=== PATIENT | male | born 1970 | race Caucasian/White ===

== ENCOUNTER 2023-01-10 11:24 | Outpatient (REF) | payer MEDICAID, SELFPAY ==
[2023-01-10 15:05] LABS: Alanine Aminotransferase 22 U/L (0-40); Albumin Level 4.3 g/dL (3.5-5.0); Alkaline Phosphatase 80 U/L (39-117); Anion Gap 14 (12-20); Aspartate Amino Transferase 21 U/L (5-37); Bilirubin Direct 0.2 mg/dL (0.0-0.5); Bilirubin Total 0.7 mg/dL (0.0-1.0); Blood Urea Nitrogen 14 mg/dL (9-16); Calcium 9.2 mg/dL (8.4-10.2); Carbon Dioxide 26 mmol/L (22-29); Chloride 103 mmol/L (96-108); Cholesterol 178 mg/dL (<200); Estimated Glomerular Filt Rate > 60; Glucose Random 162 mg/dL (60-115); HDL Cholesterol 43 mg/dL (>40); LDL Cholesterol Calculated 119 mg/dL (<100); Potassium 2.9 mmol/L (3.3-5.1); Sodium 140 mmol/L (135-145); Total Protein 7.8 g/dL (6.5-8.0); Triglycerides 80 mg/dL (<150)
== END 2023-01-10 11:25 | disposition home or self-care (01) ==
LOC: HO.CHCLDS 11:24
PROVIDERS: Visit Provider Student in an Organized Health Care Education/Training Program
DX: I10 Essential (primary) hypertension (principal)
CPT/HCPCS: 36415; 80048; 80061; 80076

== ENCOUNTER 2024-08-20 14:05 | Outpatient (REF) | payer MEDICAID, SELFPAY ==
--- OUTSIDE RECORDS SUMMARY | 2024-08-20 14:21 | XMS_ITS | Encounter Summary ---
Author Organization [employer] Address [address] [facility] [address] [place] [address] Care Team Providers Care Mailing Machine Assistant Name Role Phone Jenifer Diane MD Primary Care Provider [phone] Encounter Details Date Type Department Care Team (Late st Contact Info) Description 08/16/2024 Telephone [facility] Department [address] [facility] [address] [place] [address] Kendra Daniels Social History Tobacco Use Types Packs/Day Years Used Date Smoking Tobacco: Never Passive Smoke Exposure: Never Smokeless Tobacco: Never Depression Answer Date Recorded Patient Health Questionnaire-9 Score 17 08/02/2024 Patient Health Questionnaire-9 Score 17 08/02/2024 Last PHQ-9: Questionnaire Data Not on file 0 08/02/2024 Housing Stability Answer Date Recorded What is your housing situation today? I have housing today, but I am worried about losing housing in the future 08/07/[address] you li ve. Do you have problems with any of the following? None of the above 08/07/2024 Food Insecurity Answer Date Recorded Within the past 12 months, y ou worried that your food would run out before you got money to buy more: Often true 08/07/2024 Within the past 12 months,th e food you bought just didn't last and you didn't have enough money to get more: Often true Transportation Answer Date Recorded In the past 12 months, has l ack of transportation kept you from medical appts, meetings, work or from getting things needed for daily living? Yes, it has kept me from medical appointments or getting medications. 08/07/2024 Utilities Answer Date Recorded In the past 12 months, has t he electric, gas, oil or water company threatened to shut off services in your home? No 08/07/2024 Depression Answer Date Recorded Patient Health Questionnaire-2 Score 6 08/02/2024 Internet Access Answer Date Recorded Internet Access Q1 No 08/07/2024 Internet Access Q2 I cannot afford it 08/07/2024 Sex and Gender Information Value Date Recorded Sex Assigned at Male 02/08/2022 10:14 AM EDT Legal Sex Male 10:14 AM EDT Gender Identity Male 02/08/2022 10:14 AM EDT Sexual Orientation Choose not to disclose 2021 10:14 AM EDT documented as of this encounter Plan of Treatment Upcoming Encounters Date Type Department Care Team (Late st Contact Info) Description 10/10/2024 10:15 AM EDT Office Visit [facility] [address] [place] [address] Jenifer Diane MD [address] [place] [address] documented as of this encounter Visit Diagnoses Not on filedocumented in this encounter Additional Health Concerns Assessment Noted Time PHQ-9 Depression Total Score: 17 025 1:51 PM EDT documented as of this encounter Care Teams Mailing Machine Assistant Relationship Specialty Start Date End Date Jenifer Diane MD [address] [place] [id number] PCP - General Family Medicine 03/23/12 documented as of this encounter
--- OUTSIDE RECORDS SUMMARY | 2024-08-20 14:21 | XMS_ITS ---
Author Organization [employer] Address [address] [place] [address] [address] [place] [id number] Care Team Providers Care Five Piece Expansion Maker Hand Name Role Phone Jenifer Diane MD Primary Care Provider [phone] [facility] Status:Enrolled (Active) Start date:07/31/2024 Enrollment date:08/07/2024 Enrollment reason:ADT Feed Case Team Name Relationship Phone Karon Ku Machine Helper(Responsible Staff) [phone] Continued Care and Services Coordination
--- OUTSIDE RECORDS SUMMARY | 2024-08-20 14:21 | XMS_ITS ---
Author Organization [employer] Address [address] [place] [address] 7 [place] [address] Care Team Providers Care Warehouse Technician Name Role Phone Jenifer Diane MD Primary Care Provider [phone] TO Status:Enrolled (Active) Start date:07/23/2024 Enrollment date:07/26/2024 Enrollment reason:ADT Feed Case Team Name Relationship Phone Prema Ko HC Director Of Litigation(Responsible Staff ) [phone] Continued Care and Services Coordination
--- OUTSIDE RECORDS SUMMARY | 2024-08-20 14:21 | XMS_ITS | Encounter Summary ---
Author Organization [facility] Address [address] [place] [address] Care Team Providers Care Net Mobile Developer Name Role Phone Mark Solis MD Primary Care Provider Reason for Visit * Reason Comments Headache Nausea vomiting toda y Encounter Details Date Type Department Care Team (Late st Contact Info) Description 08/16/2024 4:57 PM EDT - 08/16/2024 11:16 PM EDT Emergency [facility] Emergency [address] [place] [phone] Petr Woodruff MD [address] [place] [address] Anca Moreno MD [address] [place] [address] Intractable headache, unspecified chronicity pattern, unspecified headache type (Primary Dx) Discharge Disposition: Home or Self Care Social History Tobacco Use Types Packs/Day Years Used Date Smoking Tobacco: Never Assessed Sex and Gender Information Value Date Recorded Sex Assigned at Not on file Legal Sex Male 2:14 PM EST Gender Identity Not on file Sexual Orientation Not on file documented as of this encounter Last Filed Vital Signs Vital Sign Reading Time Taken Comments Blood Pressure 122/53 08/16/2024 9:04 PM EDT Pulse 54 08/16/2024 9:04 PM EDT Temperature 36.6 ??C (97.8 ??F) 08/16/2024 9:04 PM ED T Respiratory Rate 18 08/16/2024 9:04 PM EDT Oxygen Saturation 98% 08/16/2024 9:04 PM EDT Inhaled Oxygen Concentration - - Weight 103 kg (226 lb 6.4 oz) 08/16/2024 5:26 PM EDT Height 182.9 cm (6') 08/16/2024 5:26 PM EDT Body Mass Index 30.71 08/16/2024 5:26 PM EDT documented in this encounter Functional Status * Are you deaf or do you have serious difficulty hearing? Answer Date of Assessment Author No 08/16/2024 11:06 PM EDT Clifford Bonilla RN * Are you blind or do you have serious difficulty seeing, even when wearing glasses? Answer Date of Assessment Author No 08/16/2024 11:06 PM EDT Clifford Bonilla RN * Do you have serious difficulty walking or climbing stairs? Answer Date of Assessment Author No 08/16/2024 11:06 PM EDT Clifford Bonilla RN * Do you have serious difficulty dressing or bathing? Answer Date of Assessment Author No 08/16/2024 11:06 PM EDT Clifford Bonilla RN * Because of a physical, mental, or emotional condition, do you have serious difficulty doing errandsalone such as visiting the doctor? Answer Date of Assessment Author No 08/16/2024 11:06 PM EDT Clifford Bonilla RN documented as of this encounter Mental Status * Because of a physical, mental, or emotional condition, do you have serious difficulty concentrating, remembering, or making decisions? (5 years old or older) Answer Entry Date Author No 08/16/2024 11:06 PM EDT Clifford Bonilla RN documented in this encounter Discharge Instructions * Discharge Instructions* Petr Woodruff MD - 08/16/2024 11:12 PM EDT You were seen in the hospital for your headache and other complaints. Your symptoms all resolved inthe emergency department with medications. We did do labs and a CAT scan, and they were unremarkable. Follow-up with your primary care doctor. Please return if your symptoms worsen. * Attachments The following attachments cannot be sent through Care Everywhere. * Headache (Slovak) documented in this encounter Discharge Disposition Disposition Code Departure Means Destination Comment s Home or Self Care documented in this encounter Progress Notes * Cherise Bonilla RN - 08/16/2024 10:50 PM EDT Pt requesting to leave and asking if he can remove his IV - IV removed by this RN * Bev Duarte RN - 08/16/2024 5:02 PM EDT Pt's symptoms were discussed with Dr. Woodruff, who suggested activating a stroke alert. Charge nurse made aware, stroke alert activated and pt moved to red pod room 1. * Bev Duarte RN - 08/16/2024 4:38 PM EDT Pt here with c/o headache , nausea and vomiting since yesterday. I had subarachnoid bleeding few years ago, [place] [facility] [place] Denies blurry vision. Denies neck stiffness. 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, It helps little bit documented in this encounter Plan of Treatment Not on file documented as of this encounter Procedures Procedure Name Priority Date/Time Associated Diagnosis Comments ECG ANNOTATED 08/17/2024 XR CHEST 1 VIEW STAT 08/16/2024 7:41 PM EDT TYPE AND SCREEN STAT 08/16/2024 5:[address] ANGIO HEAD/NECK STROKE WO AND/OR W CONTRAST STAT 08/16/2024 5:26 PM EDT ECG 12-LEAD STAT 08/16/2024 5:[address] HEAD STROKE WO CONTRAST STAT 08/16/2024 5:14 PM EDT TROPONIN I HIGH SENSITIVITY STAT 08/16/2024 5:00 PM EDT CBC WITH AUTO DIFFERENTIAL STAT 08/16/2024 5:00 PM EDT ACTIVATED PARTIAL THROMBOPLASTIN TIME STAT 08/16/2024 5:00 PM EDT PROTHROMBIN TIME WITH INR STAT 08/16/2024 5:00 PM EDT CBC AND DIFFERENTIAL STAT 08/16/2024 5:00 PM EDT COMPREHENSIVE METABOLIC PANEL STAT 08/16/2024 5:00 PM EDT documented in this encounter Results * ECG-Annotated (08/17/2024) us Provider Onbase ECG ORDERABLES Final Result * XR Chest 1 View (08/16/2024 7:41 PM EDT) Anatomical Region Laterality Modality Body Radiographic Venus ging 08/17/2024 12:4 7 PM EDT Impressions 08/17/2024 12:53 PM EDT FINDINGS/IMPRESSION: Lungs are clear. ??No pleural effusion or pneumothorax. ??Cardiac silhouette is normal in size. ??Mild degenerative changes seen throughout the bones. -------- FINAL REPORT -------- Dictated By: GAGE PETER Dictated Date: 08/17/2024 12:47 ET Assigned Physician: GAGE PETER Reviewed and Electronically Signed By: GAGE PETER Signed Date: 08/17/2024 12:53 ET Workstation ID: [id number] Transcribed By: Self Edit Transcribed Date: 08/17/2024 12:47 ET Narrative 08/17/2024 12:53 PM EDT XR CHEST 1 VIEW INDICATION: ??Pain TECHNIQUE: XR CHEST 1 VIEW COMPARISON: No priors available. Procedure Note Gage Peter MD - 08/17/2024 XR CHEST 1 VIEW INDICATION: Pain TECHNIQUE: XR CHEST 1 VIEW COMPARISON: No priors available. IMPRESSION: FINDINGS/IMPRESSION: Lungs are clear. No pleural effusion orpneumothorax. Cardiac silhouette is normal in size. Mild degenerativechanges seen throughout the bones. -------- FINAL REPORT -------- Dictated By: GAGE PETER Dictated Date: 08/17/2024 12:47 ET Assigned Physician: GAGE PETER Reviewed and Electronically Signed By: GAGE PETER Signed Date: 08/17/2024 12:53 ET Workstation ID: [id number] Transcribed By: Self Edit Transcribed Date: 08/17/2024 12:47 ET Petr Woodruff MD IMG XR PROCEDURES Final Result * Type and screen (08/16/2024 5:30 PM EDT) ABO Group A 08/16/2024 6:30 PM EDT [facility] Rh Type Positive 08/16/2024 6:30 PM EDT [facility] Antibody Screen Negative 08/16/2024 6:30 PM EDT [facility] Blood Venous blood specimen / Unknown Venipuncture / Unknown 08/16/2024 5:30 PM EDT 08/16/2024 5:45 PM EDT [facility] BLOOD BANK TEST ORDERABLES Final Result [facility] [address] [place] [address], * CT Angio Head/Neck Stroke wo and/or w Contrast (08/16/2024 5:26 PM EDT) Anatomical Region Laterality Modality Head and Neck Computed Tomogra phy 08/16/2024 6:26 PM EDT Addenda Addendum by Estuardo Bro MD on 08/16/2024 7:02 PM EDT ADDENDUM: 7 x 8 mm nodule of the right parotid gland. This document has been electronically signed by: Estuardo Bro MD on 08/16/2024 19:02:23 Impressions 08/16/2024 6:26 PM EDT Patent head and neck CTA. No evidence of dural venous sinus thrombosis. This document has been electronically signed by: Estuardo Bro MD on 08/16/2024 18:26:54 Narrative 08/16/2024 6:26 PM EDT INDICATION: Neuro deficit, acute, stroke suspected CT angiography head and neck, CT head venogram with contrast. 3D Postprocessing. Comparison: None Findings: Aortic arch and cervical great vessels are patent with no aneurysm, dissection, hemodynamically significant stenoses, or occlusion. Left dominant vertebral artery. Intracranial arteries are patent. No aneurysm, dissection, hemodynamically significant stenoses, or occlusion. No abnormal intracranial enhancement. The visualized thyroid gland is unremarkable. No cervical mass or fluid collection. Lung apices clear. No acute fracture. Degenerative changes of the cervical spine. Venogram: No contrast filling defect of the dural venous sinuses. Small left sigmoid sinus is likely to be a normal variant. Procedure Note Estuardo Bro MD - 08/16/2024 INDICATION: Neuro deficit, acute, stroke suspected CT angiography head and neck, CT head venogram with contrast. 3D Postprocessing. Comparison: None Findings: Aortic arch and cervical great vessels are patent with no aneurysm, dissection, hemodynamically significant stenoses, or occlusion. Left dominant vertebral artery. Intracranial arteries are patent. No aneurysm, dissection,hemodynamically significant stenoses, or occlusion. No abnormal intracranial enhancement. The visualized thyroid gland is unremarkable. No cervical mass or fluid collection. Lung apices clear. No acute fracture. Degenerative changes of the cervical spine. Venogram: No contrast filling defect of the dural venous sinuses. Small leftsigmoid sinus is likely to be a normal variant. IMPRESSION: Patent head and neck CTA. No evidence of dural venous sinus thrombosis. This document has been electronically signed by: Estuardo Bro MD on 08/16/2024 18:26:54 [facility] B Ranjan HASSAN [facility] CT PROCEDURES Edited Result - Final * ECG 12 lead (08/16/2024 5:23 PM EDT) Ventricular Rate ECG 55 BPM GEMUSE Atrial Rate 55 BPM GEMUSE P-R Interval 154 ms GEMUSE QRS Duration 96 ms GEMUSE Q-T Interval 444 ms GEMUSE QTc 424 ms GEMUSE P Wave [place] 11 degrees GEMUSE R [place] -4 degrees GEMUSE T [place] 27 degrees GEMUSE ECG Interpretation Sinus bradycardia Otherwise normal ECG No previous ECGs available Confirmed by Jacki MACK JOHN ([id number]) on 08/16/2024 7:33:53 PM GEMUSE 08/16/2024 5:23 PM EDT 08/16/2024 7:33 PM EDT us Petr Woodruff MD ECG ORDERABLES Final Result [facility] * CT Head Stroke wo Contrast (08/16/2024 5:14 PM EDT) Anatomical Region Laterality Modality Head and Neck Computed Tomogra phy 08/16/2024 5:24 PM EDT Addenda Addendum by Estuardo Bro MD on 08/16/2024 5:27 PM EDT ADDENDUM: This report was discussed with RANJAN Chinchilla on August 16, 2024 17:27:00 EDT. This document has been electronically signed by: Vanna Palmer on 08/16/2024 17:27:35 Impressions 08/16/2024 5:24 PM EDT 1. No acute intracranial findings. This document has been electronically signed by: Estuardo Bro MD on 08/16/2024 17:24:42 Narrative 08/16/2024 5:24 PM EDT INDICATION: Neuro deficit, acute, stroke suspected CT head without contrast Comparison: None Findings: No intra-axial mass, midline shift, hydrocephalus, or acute hemorrhage. No significant atrophy-like change or white matter disease. There is no sinus or mastoid fluid. The orbits are within normal limits. No skull fracture. Procedure Note Estuardo Bro MD - 08/16/2024 INDICATION: Neuro deficit, acute, stroke suspected CT head without contrast Comparison: None Findings: No intra-axial mass, midline shift, hydrocephalus, or acute hemorrhage. No significant atrophy-like change or white matter disease. There is no sinus or mastoid fluid. The orbits are within normal limits. No skull fracture. IMPRESSION: 1. No acute intracranial findings. This document has been electronically signed by: Estuardo Bro MD on 08/16/2024 17:24:42 [facility] Renée Woodruff MD IM CT PROCEDURES Edited Result - Final * (ABNORMAL) CBC auto differential (08/16/2024 5:00 PM EDT) WBC 6.1 4.8 - 10.8 K/mcL LAB HEMETOLOGY METHOD 08/16/2024 5:29 PM EDT [facility] RBC 5.10 4.50 - 5.50 M/mcL LAB HEMETOLOG[facility]24 [facility] Hemoglobin 16.6 13.5 - 17.5 g/dL LAB HEMETOLOGY METHOD 08/16[facility]2024 5:[facility] Hematocrit 47.9 42.0 - 54.0 % LAB HEMETOLOGY METHOD 08/16/2024 5:[facility] MCV 93.4 79.0 - 98.0 FL LAB HEMETOLOGY METHOD 08/16/2024 5:29 [facility] MCH 32.4(H) 27.0 - 32.0 pcg LAB HEMETOLOGY METHOD 08/16/2024 5:29 [facility] MCHC 34.7 32.0 - 37.0 g/dL LAB HEMETOLOGY METHOD 08/16/2024 5:29 [facility] RDW 12.9 11.0 - 15.0 % LAB HEMETOLOGY METHOD 08/16/2024 5:29 [facility] Platelets 244 130 - 400 K/mcL LAB HEMETOLOGY METHOD 08/16/2024 5:29 [facility] MPV 11.7(H) 7.0 - 11.0 FL LAB HEMETOLOGY METHOD 08/16/2024 5:29 [facility] NRBC 0.0 <1.0 % LAB HEMETOLOGY METHOD 08/16/2024 5:29 PM [facility] NRBC Absolute 0.00 <0.10 K/mcL LAB HEMETOLOGY METHOD 08/16/2024 5:29 PM [facility] Neutrophils Relative 47.6 % LAB HEMETOLOGY METHOD 08/16/2024 5:29 PM [facility] Lymphocytes Relative 34.3 % LAB HEMETOLOGY METHOD 08/16/2024 5:29 PM [facility] Monocytes Relative 11.9 % LAB HEMETOLOGY METHOD 08/16/2024 5:29 PM [facility] Eosinophils Relative 4.4 % LAB HEMETOLOGY METHOD 08/16/2024 5:29 PM [facility] Basophils Relative 1.1 % LAB HEMETOLOGY METHOD 08/16/2024 5:29 PM [facility] Immature Granulocytes Relative 0.7 % LAB HEMETOLOGY METHOD 08/16/2024 5:29 PM [facility] Neutrophils Absolute 2.91 1.50 - 7.00 K/mcL LAB HEMETOLOGY METHOD 08/16/2024 5:29 PM [facility] Lymphocytes Absolute 2.10 1.00 - 5.00 K/mcL LAB HEMETOLOGY METHOD 08/16/2024 5:29 PM [facility] Monocytes Absolute 0.73 0.20 - 1.00 K/mcL LAB HEMETOLOGY METHOD 08/16/2024 5:29 PM [facility] Eosinophils Absolute 0.27 0.00 - 0.50 K/mcL LAB HEMETOLOGY METHOD 08/16/2024 5:29 PM [facility] Basophils Absolute 0.07 0.00 - 0.20 K/mcL LAB HEMETOLOGY METHOD 08/16/2024 5:29 PM EDT [facility] Immature Granulocytes Absolute 0.04(H) 0.00 - 0.03 K/mcL LAB HEMETOLOGY METHOD 08/16/2024 5:29 PM EDT [facility] Blood Venous blood specimen / Unknown Venipuncture / Unknown 08/16/2024 5:00 PM EDT 08/16/2024 5:22 PM EDT Petr Woodruff MD LAB BLOOD ORDERABLES Final Resu lt [facility] [address] [place] [address], * Comprehensive metabolic panel (08/16/2024 5:00 PM EDT) Sodium 136 133 - 145 mmol/L LAB CHEMISTRY METHOD 08/16/2024 5:55 PM [facility] Potassium 3.9 3.5 - 5.5 mmol/L LAB CHEMISTRY METHOD 08/16/2024 5:55 PM [facility] Chloride 102 96 - 110 mmol/L LAB CHEMISTRY METHOD 08/16/2024 5:55 PM [facility] CO2 31 21 - 32 mmol/L LAB CHEMISTRY METHOD 08/16/2024 5:55 PM [facility] Anion Gap 3 3 - 11 LAB CHEMISTRY METHOD 08/16/2024 5:55 PM [facility] Glucose 85 70 - 100 mg/dL LAB CHEMISTRY METHOD 08/16/2024 5:55 PM [facility] BUN 12 5 - 25 mg/dL LAB CHEMISTRY METHOD 08/16/2024 5:55 PM [facility] Creatinine 0.99 0.70 - 1.30 mg/dL LAB CHEMISTRY METHOD 08/16/2024 5:55 PM [facility] eGFR 91 >=60 mL/min/1. 73m2 LAB CHEMISTRY METHOD 08/16/2024 5:55 PM [facility] Comment:Calculation based on the Chronic Kidney Disease Epidemiology Collaboration (CKD-EPI) equation refit without adjustment for race. BUN/Creatinine Ratio 12.1 LAB CHEMISTRY METHOD 08/16/2024 5:55 PM [facility] Calcium 9.2 8.5 - 10.5 mg/dL LAB CHEMISTRY METHOD 08/16/2024 5:55 PM [facility] AST (SGOT) 16 10 - 42 unit/L LAB CHEMISTRY METHOD 08/16/2024 5:55 PM [facility] ALT (SGPT) 32 10 - 60 unit/L LAB CHEMISTRY METHOD 08/16/2024 5:55 PM [facility] Alkaline Phosphatase 90 42 - 121 unit/L LAB CHEMISTRY METHOD 08/16/2024 5:55 PM [facility] Total Protein 7.3 6.0 - 8.0 g/dL LAB CHEMISTRY METHOD 08/16/2024 5:55 PM [facility] Albumin 3.7 3.2 - 5.0 g/dL LAB CHEMISTRY METHOD 08/16/2024 5:55 PM [facility] Total Bilirubin 0.7 0.0 - 1.4 mg/dL LAB CHEMISTRY METHOD 08/16/2024 5:55 PM [facility] Blood Venous blood specimen / Unknown Venipuncture / Unknown 08/16/2024 5:00 PM EDT 08/16/2024 5:22 PM EDT us Petr Woodruff MD LAB BLOOD ORDERABLES Final Resu lt [facility] [address] [place] [address], [place] [phone] * Prothrombin time with INR (08/16/2024 5:00 PM EDT) Pathologist [facility] Protime 12.7 10.6 - 13.9 sec LAB COAGULATION METHOD 08/16/2024 5:36 PM EDT [facility] INR 1.0 LAB COAGULATION METHOD 08/16/2024 5:36 PM EDT [facility] Blood Venous blood specimen / Unknown Venipuncture / Unknown 08/16/2024 5:00 PM EDT 08/16/2024 5:22 PM EDT Petr Woodruff MD LAB BLOOD ORDERABLES Final Resu lt [facility] [address] [place] [address], * APTT (08/16/2024 5:00 PM EDT) [facility] aPTT 28.4 24.1 - 39.3 sec LAB COAGULATION METHOD 08/16/2024 5:36 PM EDT [facility] Blood Venous blood specimen / Unknown Venipuncture / Unknown 08/16/2024 5:00 PM EDT 08/16/2024 5:22 PM EDT us Petr Woodruff MD LAB BLOOD ORDERABLES Final Resu lt [facility] [address] [place] [address], [place] [phone] * Troponin I high sensitivity (08/16/2024 5:00 PM EDT) [facility] High Sensitivity Troponin I 4 <=79 ng/L LAB CHEMISTRY METHOD 08/16/2024 5:54 PM EDT [facility] Blood Venous blood specimen / Unknown Venipuncture / Unknown 08/16/2024 5:00 PM EDT 08/16/2024 5:22 PM EDT Narrative [facility] - 08/16/2024 5:54 PM EDT High levels of biotin in samples may falsely decrease hsTroponin values. ??Use caution when interpreting hsTroponin results in patients taking biotin who exhibit renal impairment (eGFR <60) or in patients taking more than 20 mg/day of biotin. Petr Woodruff MD LAB BLOOD ORDERABLES Final Resu lt [facility] [address] [place] [address], documented in this encounter Visit Diagnoses Diagnosis Intractable headache, unspecified chronicity pattern, unspecified headache type- Primary documented in this encounter Administered Medications Inactive Administered Medications - up to 3 most recent administrations Medication Order MAR Action Action Date Dose Rate Site acetaminophen (TYLENOL) tablet 650 mg 650 mg, oral, Once, On Betty 08/16/24 at 2205, For 1 dose Given 08/16/2024 10:38 PM EDT 650 mg ctetpunlgs-zpnmhufzxgbsp-hdisntsa (FIORICET, ESGIC) 50-325-40 mg per tablet 1 tablet 1 tablet, oral, Every 4 hours PRN, headaches, Starting on Betty 08/16/24 at 2204 ibuprofen (ADVIL,MOTRIN) tablet 600 mg 600 mg, oral, Once, On Betty 08/16/24 at 2205, For 1 dose, Administer with food or milk to decrease GI upset Given 08/16/2024 10:38 PM EDT 600 mg iopamidoL (ISOVUE-370) 370 mg iodine /mL (76 %) injection 90 mL 90 mL, intravenous, Once in imaging, Starting on Betty 08/16/24 at 1705, For 1 dose Given 08/16/2024 5:06 PM EDT 90 mL sodium chloride 0.9 % flush 10 mL 10 mL, intravenous, Once, On Betty 08/16/24 at 1706, For 1 dose Given 08/16/2024 5:06 PM EDT 10 mL documented in this encounter Active and Recently Administered Medications Times are shown in EDT. Scheduled Medication Order 08/14/2024 08/15/2024 08/16/2024 acetaminophen (TYLENOL) tablet 650 mg (COMPLETED) 650 mg, oral, Once, On Betty 08/16/24 at 2205, For 1 dose 2237 (Given - Provid er: Leta Onofre RN) ibuprofen (ADVIL,MOTRIN) tablet 600 mg (COMPLETED) 600 mg, oral, Once, On Betty 08/16/24 at 2205, For 1 dose, Administer with food or milk to decrease GI upset 2237 (Given - Provid er: Leta Onofre RN) iopamidoL (ISOVUE-370) 370 mg iodine /mL (76 %) injection 90 mL (COMPLETED) 90 mL, intravenous, Once in imaging, Starting on Betty 08/16/24 at 1705, For 1 dose 170 (Given - Provid er: Lizzeth Yousif) sodium chloride 0.9 % flush 10 mL (COMPLETED) 10 mL, intravenous, Once, On Betty 08/16/24 at 1706, For 1 dose 170 (Given - Provid er: Lizzeth Yousif) PRN Medication Order 08/14/2024 08/15/2024 08/16/2024 nnqyxegomt-qejnqmilqexhc-rfpxjtvc (FIORICET, ESGIC) 50-325-40 mg per tablet 1 tablet 1 tablet, oral, Every 4 hours PRN, headaches, Starting on Betty 08/16/24 at 2204 documented in this encounter Orders Medications Ordered That Vick ht Not Have Been Administered Count Last Ordered Date First Ordered Date hhyybeqrgh-nnijgsssggkoy-pvz feine (FIORICET, ESGIC) 50-325-40 mg per tablet 1 tablet 1 08/16/2024 Nursing Count Last Ordered Date First Orde red Date NURSING SWALLOW SCREEN 1 08/16/2024 VITAL SIGNS 1 08/16/2024 IV Count Last Ordered Date First Orde red Date SALINE LOCK IV 1 08/16/2024 documented in this encounter Care Teams Net Mobile Developer Relationship Specialty Start Date End Date Mark Solis MD [address] [place] [address] PCP - General 05/06/23 documented as of this encounter
--- OUTSIDE RECORDS SUMMARY | 2024-08-20 14:21 | XMS_ITS | Encounter Summary ---
Author Organization [employer] Address [address] [facility] [address] [place] [address] Care Team Providers Care Motion Study Engineer Name Role Phone Jenifer Diane MD Primary Care Provider [phone] Encounter Details Date Type Department Care Team (Late st Contact Info) Description 08/16/2024 Patient Outreach [facility] ([facility] Department [address] [facility] [address] [place] [address] Karon Ku Social History Tobacco Use Types Packs/Day Years [...] Description 10/10/2024 10:15 AM EDT Office Visit [facility] [address] [place] [address] Jenifer Diane MD [address] [place] [address] documented as of this encounter Visit Diagnoses Not on filedocumented in this encounter Additional Health Concerns Assessment Noted Time PHQ-9 Depression Total Score: 17 025 1:51 PM EDT documented as of this encounter Care Teams Motion Study Engineer Relationship Specialty Start Date End Date Jenifer Diane MD [address] [place] [address] PCP - General Family Medicine 03/23/12 documented as of this encounter
--- OUTSIDE RECORDS SUMMARY | 2024-08-20 14:21 | XMS_ITS | Encounter Summary ---
Author Organization [employer] Address [address] [facility] [address] [place] [address] Care Team Providers Care Fire Engine Operator Name Role Phone Jenifer Diane MD Primary Care Provider [phone] Encounter Details Date Type Department Care Team (Late st Contact Info) Description 08/15/2024 Patient Outreach [facility] Care [facility] (C[facility]) Department [address] [facility] [address] [place] [address] Karon Ku Social History Tobacco [...] Description 10/10/2024 10:15 AM EDT Office Visit [facility] PEDS [address] [place] [address] Jenifer Diane MD [address] [place] [address] documented as of this encounter Visit Diagnoses Not on filedocumented in this encounter Additional Health Concerns Assessment Noted Time PHQ-9 Depression Total Score: 17 025 1:51 PM EDT documented as of this encounter Care Teams Fire Engine Operator Relationship Specialty Start Date End Date Jenifer Diane MD [address] [place] [id number] PCP - General Family Medicine 03/23/12 documented as of this encounter
--- OUTSIDE RECORDS SUMMARY | 2024-08-20 14:21 | XMS_ITS | Encounter Summary ---
Author Organization [facility] [employer] Address [address] [place] [address] Care Team Providers Care International Affairs Vice President Name Role Phone Jenifer Diane MD Primary Care Provider [phone] Encounter Details Date Type Department Care Team (Latest Contact Info) Description 08/20/2024 Travel Social History Tobacco Use Types Packs/Day Years [...] Description 10/10/2024 10:15 AM EDT Office Visit [facility] [address] [place] [address] Jenifer Diane MD [address] [place] [address] documented as of this encounter Visit Diagnoses Not on filedocumented in this encounter Additional Health Concerns Assessment Noted Time PHQ-9 Depression Total Score: 17 025 1:51 PM EDT documented as of this encounter Care Teams International Affairs Vice President Relationship Specialty Start Date End Date Jenifer Diane MD [address] [place] [id number] PCP - General Family Medicine 03/23/12 documented as of this encounter
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
--- OUTSIDE RECORDS SUMMARY | 2024-08-20 14:21 | XMS_ITS | Encounter Summary ---
Author Organization [employer] Address [address] [facility] [address] [place] [address] Care Team Providers Care Slitter And Cutter Operator Name Role Phone Jenifer Diane MD Primary Care Provider [phone] Reason for Visit * Reason Onset Date Comments Walk-In 08/20/2024 Encounter Details Date Type Department Care Team ([facility] st Contact Info) Description 08/20/2024 Telephone [facility] MED [facility]EDS [address] [place] [address] Jenifer Diane MD [address] [place] [address] Walk-In Social History Tobacco Use Types Packs/Day Years [...] AM EDT documented as of this encounter Miscellaneous Notes * Telephone Encounter - Lisa Fox RN - 08/20/2024 11:58 AM EDT Pt walk in. Pt states that when he eats that his whole body shakes. It has happened twice includingthis morning. Pt denies any LOC and is nonsymptomatic at the time of walk in. Pt is not diabetic. VS stable 145/86, HR 65, and O2 100% on RA. Pt given Same Day Care spot at 1 pm. Pt verbalizes understanding and agreement with the plan of care. documented in this encounter Plan of Treatment Upcoming Encounters Date Type Department Care Team (Late st Contact Info) Description 10/10/2024 10:15 AM EDT Office Visit [facility] MED & PEDS [address] [place] [address] Jenifer Diane MD [address] [place] [address] documented as of this encounter Visit Diagnoses Not on filedocumented in this encounter Additional Health Concerns Assessment Noted Time PHQ-9 Depression Total Score: 17 025 1:51 PM EDT documented as of this encounter Care Teams Slitter And Cutter Operator Relationship Specialty Start Date End Date Jenifer Diane MD [address] [place] [id number] PCP - General Family Medicine 03/23/12 documented as of this encounter
--- OUTSIDE RECORDS SUMMARY | 2024-08-20 14:21 | XMS_ITS | Clinical Summary ---
Author Organization [employer] Address [address] [facility] [address] [place] [address] Care Team Providers Care Satellite Dish Technician Name Role Phone Jenifer Diane MD Primary Care Provider [phone] Allergies No known active allergies Medications * This document contains information received from the source organization and may not represent a complete record from that organization. meloxicam (Mobic) 7.5 MG tablet Take 1 tablet by mouth in the morning and at bedtime. Take 1 tablet by oral route 2 times every day. 2 Active risperiDONE (RisperDAL) 1 MG tabletIndications :Mixed Bipolar Affective Disorder TAKE 1 TABLET BY MOUTH IN THE MORNING AND AT BEDTIME EVERY DAY 180 tablet 1 3 Active tadalafil (Cialis) 5 MG tablet Take 1 tablet (5 mg) by mouth in the morning. 30 tablet 3 Active hydroCHLOROthiazi de (HYDRODiuril) 25 MG tabletIndications :Primary hypertension TAKE 1 TABLET BY MOUTH EVERY DAY ONE DOSE 90 tablet 3 4 Active hydrOXYzine HCl (Atarax) 50 MG tabletIndications :Anxiety TAKE 1 TABLET BY MOUTH FOUR TIMES A DAY 90 tablet 2 5 Active Active Problems Problem Noted Date Diagnosed Date Mass of right parotid gland 08/20/2024 Moderately severe depression 08/02/2024 Class 1 obesity 09/07/2023 Primary hypertension 09/07/2023 Anxiety 06/05/2013 Encounters * This document contains information received from the source organization and may not represent a complete record from that organization. Date Type Department Care Team Description 08/20/2024 1:00 PM EDT Office Visit [facility] MED & PEDS [address] [place] [address] Natasha Polk MD Muscle spasm (Primary Dx); Mass of right parotid gland 08/20/2024 Travel 08/20/2024 Telephone [facility] MED & PEDS [address] [place] [address] Jenifer Diane MD Walk-In 08/16/2024 Telephone [facility] [address] [place] [address] Kendra Daniels 08/16/2024 Patient Outreach [facility] [address] [place] [address] KuKaron gupta 08/16/2024 Patient Outreach [facility] [address] [place] [address] Prema Ko [facility] 08/15/2024 Patient Outreach [facility] [address] [place] [address] KuKaron gupta 08/14/2024 Patient Outreach [facility] [address] [place] [address] KuKaron gupta 08/09/2024 Patient Outreach [facility] [address] [place] [address] Prema Ko [facility] 08/07/2024 Patient Outreach [facility] [address] [place] [address] KuKaron gupta 08/07/2024 Patient Outreach [facility] [address] [place] [address] KuDelia guptazy 08/07/2024 Patient Outreach [facility] [address] [place] [address] KuDelia guptazy 08/06/2024 Population Health Risk Score [facility] [address] [place] [address] Provider, Population Health Generic 08/03/2024 Patient Outreach [facility] [address] [place] [address] Ko, Prema, [facility] 08/03/2024 Patient Outreach [facility] [address] [place] [address] Ko, Prema, [facility] 07/31/2024 Patient Outreach [facility] [address] [place] [phone] Ko, Prema, [facility] 07/31/2024 Patient Outreach [facility] MEDICINE [address] [place] [phone] Jenifer Diane MD Care Coordination ([facility]) 07/31/2024 Patient Outreach [facility] [address] [place] [address] Karon Ku 07/31/2024 Patient Outreach [facility] [address] [place] [phone] Karon Ku 07/30/2024 Patient Outreach [facility] [address] [place] [address] Ko, Prema, [facility] 07/26/2024 Patient Outreach [facility] [address] [place] [address] Ko, Prema, [facility] 07/26/2024 Patient Outreach [facility] [address] [place] [address] Ko, Prema, [facility] 07/23/2024 Patient Outreach [facility] [address] [place] [phone] Ko, Prema, [facility] 06/27/2024 Refill [facility] MED & PEDS [address] [place] [address] Jenifer Diane MD Anxiety from Last 3 Months Immunizations Name Administration Dates Next Due Hep B, adult 05/06/2011,06/13/2009,11/20/2008 Influenza injectable quadriv alent preservative free 01/10/2023,04/09/2016,04/08/2015 MMR 04/12/2002 Moderna Covid-19 Vaccine 12+ 09/06/2020,08/10/19 21 TD (adult), 2 Lf tetanus tox oid, preservative free, adsorbed 12/24/2021,03/13/1999 Tdap 05/06/2011 Social History Tobacco Use Types Packs/Day Years [...] the past 12 months, has t he [place], gas, oil or water company threatened to [...] not to disclose 2021 10:14 AM EDT Last Filed Vital Signs Vital Sign Reading [...] Mass Index 32.28 08/20/2024 1:19 PM EDT Plan of Treatment Upcoming Encounters Date Type Department Care Team (Late st Contact Info) Description 10/10/2024 10:15 AM EDT Office Visit [facility] MED & PEDS [address] [place] [address] Jenifer Diane MD [address] [place] [address] Health Maintenance Due Date Last Done Comments CT Colonography 1970 Colonoscopy 1970 Colorectal Cancer Screening 1970 Dental Oral Exam 1970 Dental X-Ray: Bitewings 1970 Dental X-Ray: Full Mouth 1970 FIT DNA/Cologuard 1970 FIT 1970 FOBT 1970 HIV Screening 1970 Sigmoidoscopy 1970 Alcohol/Substance Use Screening 1982 Hepatitis C Screening 1988 Dental Prophylaxis 02/06/2009 08/06/2008 Pneumococcal Vaccine: 50+ Years (1 of 1 - PCV) 2020 Zoster Vaccines (1 of 2) 2020 COVID-19 Vaccine (3 - 2023-2 5 season) 2023 09/06/2020, 08/09/2020 Influenza Vaccine (#1) 2023 , 04/09/2016, 04/08/2015 Depression Screening 08/02/2025 08/02/2024, 08/02/2024 SDOH Screening 08/07/2025 08/07/2024 Tobacco Screening 08/20/2025 08/20/2024 Lipid Panel 01/11/2028 01/10/2023 DTaP/Tdap/Td Vaccines (3 - T d or Tdap) 12/25/2031 12/24/2021, 05/06/2011, 03/13/1999 RSV Patients and Patients Aged 60 years or older (1 - 1-dose 75+ series) 2045 Hepatitis B Vaccines Completed 05/06/2011, 06/13/2009, 11/20/2008 HIB Vaccines Aged Out No longer eligi ble based on patient's age to complete this topic HPV Vaccines Aged Out No longer eligi ble based on patient's age to complete this topic Hepatitis A Vaccines Aged Out No long er eligible based on patient's age to complete this topic IPV Vaccines Aged Out No longer eligi ble based on patient's age to complete this topic Meningococcal Vaccine Aged Out No kulwant aida eligible based on patient's age to complete this topic RSV under 20 months Aged Out No longe r eligible based on patient's age to complete this topic Rotavirus Vaccines Aged Out No longer eligible based on patient's age to complete this topic Procedures Procedure Name Priority Date/Time Associated Diagnosis Comments LIPID PANEL, STANDARD Routine 01/10/2023 11:30 AM EDT Hypertension, unspecified type PROPHYLAXIS - ADULT Routine 08/06/2008 1 2:00 AM EDT from Last 3 Months or Most Recently Relevant to Health Maintenance Results * (ABNORMAL) Lipid Panel, Standard (01/10/2023 11:30 AM EDT) Triglycerides 80 <150 mg/dL [facility] Comment:Desirable Triglyceri de: less than 150 mg/dLBorderline High Triglyceride 150-199 mg/dLHigh Triglyceride: 200-499 mg/dLVery High Triglyceride: greater than or equal to 5OO mg/dL Cholesterol 178 <200 mg/dL [facility] Comment:Desirable Cholestero l: less than 200 mg/dLBorderline High Cholesterol: 200-239 mg/dLHigh Cholesterol: greater than 239 mg/dL LDL Cholesterol Calculated 119(H) <100 mg/dL [facility] Comment:Desirable LDL: less than 100 mg/dLNear Optimal/Above Optimal LDL: 110- 129 mg/dLBorderline High LDL: 130-159 mg/dLHigh LDL: 160-189 mg/dLVery High LDL: greater than or equal to 190 mg/dL HDL Cholesterol 43 >40 mg/dL [facility] Comment:Desirable HDL: great er than 40 mg/dL Note: This HDL assay may give artificially low results in patients with liver disease. Blood Venous blood specimen / Unknown 01/10/2023 11:30 AM EDT 01/10/2023 2:33 PM EDT us Jenifer Diane MD LAB BLOOD ORDERABLES Final Resul t [facility] [address] [place] [address] [phone] from Last 3 Months or Most Recently Relevant to Health Maintenance Insurance [facility] [place] [address] [place] [address] [place] [address] Care Teams Satellite Dish Technician Relationship Specialty Start Date End Date Jenifer Diane MD [address] [place] [id number] PCP - General Family Medicine 03/23/12
--- OUTSIDE RECORDS SUMMARY | 2024-08-20 14:21 | XMS_ITS | Encounter Summary ---
Author Organization [employer] Address [address] [facility] [address] [place] [address] Care Team Providers Care Academic Intern Name Role Phone Jenifer Diane MD Primary Care Provider [phone] Encounter Details Date Type Department Care Team (Late st Contact Info) Description 01/18/2023 Orders Only C [facility] [address] [place], [place] [phone] Jenifer Diane MD [address] [place], [place] [phone] Social History Tobacco Use Types Packs/Day Years Used Date Smoking Tobacco: Never Passive Smoke Exposure: Never Smokeless Tobacco: Never Depression Answer Date Recorded Patient Health Questionnaire-9 Score 12 04/01/2022 Housing Stability Answer Date Recorded What is your housing situation today? I have rosannaashlyn [place]ona 01/18/[address] you li ve. Do you have problems with any of the following? None of the above 01/18/2023 Food Insecurity Answer Date Recorded Within the past 12 months, y ou worried that your food would run out before you got money to buy more: Never True 01/18/2023 Within the past 12 months,th e food you bought just didn't last and you didn't have enough money to get more: Never True 01/2023 Transportation Answer Date Recorded In the past 12 months, has l ack of transportation kept you from medical appts, meetings, work or from getting things needed for daily living? No 01/18/2023 Utilities Answer Date Recorded In the past 12 months, has t he electric, gas, oil or water company threatened to shut off services in your home? No 01/18/2023 Depression Answer Date Recorded Patient Health Questionnaire-2 Score 2 04/01/2022 Sex and Gender Information Value Date Recorded [...] Description 10/10/2024 10:15 AM EDT Office Visit [facility] MED & PEDS [address] [place] [address] Jenifer Diane MD [address] [place] [address] documented as of this encounter Visit Diagnoses Not on filedocumented in this encounter Additional Health Concerns Assessment Noted Time PHQ-9 Depression Total Score: 12 04/01/ 022 10:27 AM EST documented as of this encounter Care Teams Academic Intern Relationship Specialty Start Date End Date Jenifer Diane MD [address] [place] [id number] PCP - General Family Medicine 03/23/12 documented as of this encounter
--- OUTSIDE RECORDS SUMMARY | 2024-08-20 14:21 | XMS_ITS | Clinical Summary ---
Author Organization [facility] Address [address] [place] [address] Phone Care Team Providers Care Machine Plug Shaper Name Role Phone Mark Solis MD Primary Care Provider Allergies No known active allergies Encounters Date Type Department Care Team Description 08/16/2024 4:57 PM EDT - 08/16/2024 11:16 PM EDT Emergency [facility] Emergency [address] [place] [address] Petr Woodruff MD Garvin, Anca Angeles MD Intractable headache, unspecified chronicity pattern, unspecified headache type (Primary Dx) Discharge Disposition: Home or Self Care from Last 3 Months Social History Tobacco Use Types Packs/Day Years Used Date Smoking Tobacco: Never Assessed Sex and Gender Information Value Date Recorded Sex Assigned at Not on file Legal Sex Male 2:14 PM EST Gender Identity Not on file Sexual Orientation Not on file Obstetrics History Last Filed Vital Signs Vital Sign Reading [...] Mass Index 30.71 08/16/2024 5:26 PM EDT Plan of Treatment Health Maintenance Due Date Last Done Comments Pneumococcal Vaccine: 50+ Years (1 of 1 - PCV) 2020 Zoster Vaccines (1 of 2) 2020 Colorectal Cancer Screening: Colonoscopy 03/10/2022 HIV Screening 03/10/2022 Hepatitis C Screening 03/10/2022 Social Influencers of Health Screening 03/10/2022 COVID-19 Vaccine (3 - 2023-2 5 season) 2023 09/06/2020, 08/09/2020 Influenza Vaccine (Season Ended) 2024 01/10/2023, 04/09/2016, 04/08/2015 Depression Screening 08/02/2025 08/02/2024 Hypertension/CHF/CAD Annual BMP Blood Test 08/16/2025 08/16/2024 Cholesterol Screening (Lipid Panel) 01/11/2028 01/10/2023 DTaP,Tdap,and Td Vaccines (4 - Td or Tdap) 12/25/2031 12/24/2021, 05/06/2011, 03/13/1999 MMR Vaccines Aged Out 04/12/2002 No longer eligi ble based on patient's age to complete this topic Hepatitis B Vaccines Completed 05/06/2011, 06/13/2009, 11/20/2008 [...] patient's age to complete this topic Meningococcal ACWY Vaccine Aged Out N o longer eligible based on patient's age to complete this topic Meningococcal B Vaccine Aged Out No l onger eligible based on patient's age to complete this topic Pneumococcal Vaccine: Pediatrics (0 to 5 Years) and At-Risk Patients (6 to 64 Years) Aged Out No longer eligible b ased on patient's age to complete this topic RSV Immunization Patients Under 20 months Aged Out No longer eligible b ased on patient's age to complete this topic Varicella Vaccines Aged Out No longer eligible based [...] WO CONTRAST STAT 08/16/2024 5:14 PM EDT CBC WITH AUTO DIFFERENTIAL STAT 08/16/2024 5:00 PM EDT CBC AND DIFFERENTIAL STAT 08/16/2024 5:00 PM EDT COMPREHENSIVE METABOLIC PANEL STAT 08/16/2024 5:00 PM EDT PROTHROMBIN TIME WITH INR STAT 08/16/2024 5:00 PM EDT ACTIVATED PARTIAL THROMBOPLASTIN TIME STAT 08/16/2024 5:00 PM EDT TROPONIN I HIGH SENSITIVITY STAT 08/16/2024 5:00 PM EDT from Last 3 Months Results * ECG-Annotated (08/17/2024) us Provider Onbase MD ECG ORDERABLES Final Result * XR Chest 1 View (08/16/2024 7:41 PM EDT) Anatomical Region Laterality Modality Body Radiographic Venus ging 08/17/2024 12:4 7 PM EDT Impressions 08/17/2024 12:53 PM EDT FINDINGS/IMPRESSION: Lungs are clear. ??No pleural effusion or pneumothorax. ??Cardiac silhouette is normal in size. ??Mild degenerative changes seen throughout the bones. -------- FINAL REPORT -------- Dictated By: YOSEF PETER Dictated Date: 08/17/2024 12:47 ET Assigned Physician: YOSEF PETER Reviewed and Electronically Signed By: YOSEF PETER Signed Date: 08/17/2024 12:53 ET Workstation ID: [id number] Transcribed By: Self Edit Transcribed Date: 08/17/2024 12:47 ET Narrative 08/17/2024 12:53 PM EDT XR CHEST 1 VIEW INDICATION: ??Pain TECHNIQUE: XR CHEST 1 VIEW COMPARISON: No priors available. Procedure Note Yosef Peter MD - 08/17/2024 XR CHEST 1 VIEW INDICATION: Pain TECHNIQUE: XR CHEST 1 VIEW COMPARISON: No priors available. IMPRESSION: FINDINGS/IMPRESSION: Lungs are clear. No pleural effusion orpneumothorax. Cardiac silhouette is normal in size. Mild degenerativechanges seen throughout the bones. -------- FINAL REPORT -------- Dictated By: YOESF PETER Dictated Date: 08/17/2024 12:47 ET Assigned Physician: YOSEF PETER Reviewed and Electronically Signed By: YOSEF PETER Signed Date: 08/17/2024 12:53 ET Workstation ID: [id number] Transcribed By: Self Edit Transcribed Date: 08/17/2024 12:47 ET Petrwesley Woodruff MD IMG XR PROCEDURES Final Result * Type and screen (08/16/2024 5:30 PM EDT) ABO Group A 08/16/2024 6:30 PM EDT [facility] Rh Type Positive 08/16/2024 6:30 PM EDT [facility] Antibody Screen Negative 08/16/2024 6:30 PM EDT [facility] Blood Venous blood specimen / Unknown Venipuncture / Unknown 08/16/2024 5:30 PM EDT 08/16/2024 5:45 PM EDT Petr Woodruff MD LAB BLOOD BANK TEST ORDERABLES Final Result [facility] [address] [facility] [place] [address], * CT Angio Head/Neck Stroke wo and/or [...] by: Estuardo Bro MD on 08/16/2024 18:26:54 Petrwesley Woodruff MD IMG CT PROCEDURES Edited Result - Final * ECG 12 lead (08/16/2024 5:23 PM EDT) Ventricular Rate ECG 55 BPM GEMUSE Atrial Rate 55 BPM GEMUSE P-R Interval 154 ms GEMUSE QRS Duration 96 ms GEMUSE Q-T Interval 444 ms GEMUSE QTc 424 ms GEMUSE P Wave Headrick 11 degrees GEMUSE R Headrick -4 degrees GEMUSE T Headrick 27 degrees GEMUSE ECG Interpretation Sinus bradycardia Otherwise normal ECG No previous ECGs available Confirmed by Jacki MACK JOHN ([id number]) on 08/16/2024 7:33:53 PM GEMUSE 08/16/2024 5:23 PM EDT 08/16/2024 7:33 PM EDT Petrwesley Woodruff MD ECG ORDERABLES Final Result G[facility] * CT Head Stroke wo Contrast (08/16/2024 5:14 PM EDT) Anatomical Region Laterality Modality Head and Neck Computed Tomogra phy 08/16/2024 5:24 PM EDT Addenda Addendum by Estuardo Bro MD on 08/16/2024 5:27 PM EDT ADDENDUM: This report was discussed with BRENDA Chinchilla on August 16, 2024 17:27:00 EDT. [...] by: Estuardo Bro MD on 08/16/2024 17:24:42 Petr Woodruff MD IMG CT PROCEDURES Edited Result - Final * Troponin I high sensitivity (08/16/2024 5:00 PM EDT) High Sensitivity Troponin I 4 <=79 ng/L LAB CHEMISTRY METHOD 08/16/2024 5:54 PM EDT [facility] Blood Venous blood specimen / Unknown Venipuncture / Unknown 08/16/2024 5:00 PM EDT 08/16/2024 5:22 PM EDT Narrative [facility] - 08/16/2024 5:54 PM EDT High levels of biotin in samples may falsely decrease hsTroponin values. ??Use caution when interpreting hsTroponin results in patients taking biotin who exhibit renal impairment (eGFR <60) or in patients taking more than 20 mg/day of biotin. Petr Woodruff MD LAB BLOOD ORDERABLES Final Resu lt [facility] [address] [place] [address], * (ABNORMAL) CBC auto differential (08/16/2024 5:00 PM EDT) [facility] Signature WBC 6.1 4.8 - 10.8 K/mcL LAB HEMETOLOGY METHOD 08/16/2024 5:29 PM EDT [facility] RBC 5.10 4.50 - 5.50 M/mcL LAB HEMETOLOGY METHOD 08/16/2024 5:29 PM EDT [facility] Hemoglobin 16.6 13.5 - 17.5 g/dL LAB HEMETOLOGY METHOD 08/16/2024 5:29 PM EDT [facility] Hematocrit 47.9 42.0 - 54.0 % LAB HEMETOLOGY METHOD 08/16/2024 5:29 PM EDT [facility] MCV 93.4 79.0 - 98.0 FL LAB HEMETOLOGY METHOD 08/16/2024 5:29 PM EDT [facility] MCH 32.4(H) 27.0 - 32.0 pcg LAB HEMETOLOGY METHOD 08/16/2024 5:29 PM EDT [facility] MCHC 34.7 32.0 - 37.0 g/dL LAB HEMETOLOGY METHOD 08/16/2024 5:29 PM EDT [facility] RDW 12.9 11.0 - 15.0 % LAB HEMETOLOGY METHOD 08/16/2024 5:29 PM EDT [facility] Platelets 244 130 - 400 K/mcL LAB HEMETOLOGY METHOD 08/16/2024 5:29 PM EDT [facility] MPV 11.7(H) 7.0 - 11.0 FL LAB HEMETOLOGY METHOD 08/16/2024 5:29 PM EDT [facility] NRBC 0.0 <1.0 % LAB HEMETOLOGY METHOD 08/16/2024 5:29 PM EDT [facility] NRBC Absolute 0.00 <0.10 K/mcL LAB HEMETOLOGY METHOD 08/16/2024 5:29 PM [facility] Neutrophils Relative 47.6 % LAB HEMETOLOGY METHOD 08/16/2024 5:29 PM [facility] Lymphocytes Relative 34.3 % LAB HEMETOLOGY METHOD 08/16/2024 5:29 PM [facility] Monocytes Relative 11.9 % LAB HEMETOLOGY METHOD 08/16/2024 5:29 PM [facility] Eosinophils Relative 4.4 % LAB HEMETOLOGY METHOD 08/16/2024 5:29 PM [facility] Basophils Relative 1.1 % LAB HEMETOLOGY METHOD 08/16/2024 5:29 PM [facility] Immature Granulocytes Relative 0.7 % LAB HEMETOLOGY METHOD 08/16/2024 5:29 PM [facility] Neutrophils Absolute 2.91 1.50 - 7.00 K/mcL LAB HEMETOLOGY METHOD 08/16/2024 5:29 PM [facility] Lymphocytes Absolute 2.10 1.00 - 5.00 K/mcL LAB HEMETOLOGY METHOD 08/16/2024 5:29 PM [facility] Monocytes Absolute 0.73 0.20 - 1.00 K/mcL LAB HEMETOLOGY METHOD 08/16/2024 5:29 PM [facility] Eosinophils Absolute 0.27 0.00 - 0.50 K/mcL LAB HEMETOLOGY METHOD 08/16/2024 5:29 PM [facility] Basophils Absolute 0.07 0.00 - 0.20 K/mcL LAB HEMETOLOGY METHOD 08/16/2024 5:29 PM [facility] Immature Granulocytes Absolute 0.04(H) 0.00 - 0.03 K/mcL LAB HEMETOLOGY METHOD 08/16/2024 5:29 PM EDT [facility] Blood Venous blood specimen / Unknown Venipuncture / Unknown 08/16/2024 5:00 PM EDT 08/16/2024 5:22 PM EDT Petrwesley Woodruff MD LAB BLOOD ORDERABLES Final Resu lt [facility] [address] [place] [address], [place] [phone] * APTT (08/16/2024 5:00 PM EDT) aPTT 28.4 24.1 - 39.3 sec LAB COAGULATION METHOD 08/16/2024 5:36 PM EDT [facility] Blood Venous blood specimen / Unknown Venipuncture / Unknown 08/16/2024 5:00 PM EDT 08/16/2024 5:22 PM EDT Petrwesley Woodruff MD LAB BLOOD ORDERABLES Final Resu lt [facility] [address] [place] [address], [place] [phone] * Prothrombin time with INR (08/16/2024 5:00 PM EDT) Protime 12.7 10.6 - 13.9 sec LAB COAGULATION METHOD 08/16/2024 5:36 PM EDT [facility] INR 1.0 LAB COAGULATION METHOD 08/16/2024 5:36 PM EDT [facility] Blood Venous blood specimen / Unknown Venipuncture / Unknown 08/16/2024 5:00 PM EDT 08/16/2024 5:22 PM EDT us Petr Woodruff MD LAB BLOOD ORDERABLES Final Resu lt [facility] [address] [place] [address], [place] [phone] * Comprehensive metabolic panel (08/16/2024 5:00 PM EDT) Sodium 136 133 - 145 mmol/L LAB CHEMISTRY METHOD 08/16/2024 5:55 PM EDT [facility] Potassium 3.9 3.5 - 5.5 mmol/L LAB CHEMISTRY METHOD 08/16/2024 5:55 PM [facility] Chloride 102 96 - 110 mmol/L LAB CHEMISTRY METHOD 08/16/2024 5:55 PM [facility] CO2 31 21 - 32 mmol/L LAB CHEMISTRY METHOD 08/16/2024 5:55 PM [facility] Anion Gap 3 3 - 11 LAB CHEMISTRY METHOD 08/16/2024 5:55 PM [facility] Glucose 85 70 - 100 mg/dL LAB CHEMISTRY METHOD 08/16/2024 5:55 PM [facility] BUN 12 5 - 25 mg/dL LAB CHEMISTRY METHOD 08/16/2024 5:55 PM [facility] Creatinine 0.99 0.70 - 1.30 mg/dL LAB CHEMISTRY METHOD 08/16/2024 5:55 PM [facility] eGFR 91 >=60 mL/min/1. 73m2 LAB CHEMISTRY METHOD 08/16/2024 5:55 PM [facility] Comment:Calculation based on the Chronic Kidney Disease Epidemiology Collaboration (CKD-EPI) equation refit without adjustment for race. BUN/Creatinine Ratio 12.1 LAB CHEMISTRY METHOD 08/16/2024 5:55 PM [facility] Calcium 9.2 8.5 - 10.5 mg/dL LAB CHEMISTRY METHOD 08/16/2024 5:55 PM EDT [facility] AST (SGOT) 16 10 - 42 unit/L LAB CHEMISTRY METHOD 08/16/2024 5:55 PM EDT [facility] ALT (SGPT) 32 10 - 60 unit/L LAB CHEMISTRY METHOD 08/16/2024 5:55 PM EDT [facility] Alkaline Phosphatase 90 42 - 121 unit/L LAB CHEMISTRY METHOD 08/16/2024 5:55 PM EDT [facility] Total Protein 7.3 6.0 - 8.0 g/dL LAB CHEMISTRY METHOD 08/16/2024 5:55 PM EDT [facility] Albumin 3.7 3.2 - 5.0 g/dL LAB CHEMISTRY METHOD 08/16/2024 5:55 PM EDT [facility] Total Bilirubin 0.7 0.0 - 1.4 mg/dL LAB CHEMISTRY METHOD 08/16/2024 5:55 PM EDT [facility] Blood Venous blood specimen / Unknown Venipuncture / Unknown 08/16/2024 5:00 PM EDT 08/16/2024 5:22 PM EDT Petr Renée Woodruff MD LAB BLOOD ORDERABLES Final Resu lt [facility] [address] [place] [address], from Last 3 Months Insurance MEDICAID - [place] Care Teams Machine Plug Shaper Relationship Specialty Start Date End Date Mark Solis MD [address] [place] [address] PCP - General 05/06/23
--- OUTSIDE RECORDS SUMMARY | 2024-08-20 14:21 | XMS_ITS | Encounter Summary ---
Author Organization [employer] Address [address] [facility] [address] [place] [address] Care Team Providers Care Machine Operator Slitter Technician Name Role Phone Jenifer Diane MD Primary Care Provider [phone] Encounter Details Date Type Department Care Team (Late st Contact Info) Description 08/16/2024 Patient Outreach [facility] Care [facility] ([facility]) Department [address] [facility] [address] [place] [address] [facility] Social History Tobacco Use Types Packs/Day Years [...] AM EDT documented as of this encounter Progress Notes * MARILYN Davila - 08/16/2024 10:32 AM EDT Third Outreach Post discharge Unsuccessful LVM documented in this encounter Plan of Treatment Upcoming Encounters Date Type Department Care Team (Late st Contact Info) Description 10/10/2024 10:15 AM EDT Office Visit [facility] [address] [place] [address] Jenifer Diane MD [address] [place] [address] documented as of this encounter Visit Diagnoses Not on filedocumented in this encounter Additional Health Concerns Assessment Noted Time PHQ-9 Depression Total Score: 17 025 1:51 PM EDT documented as of this encounter Care Teams Machine Operator Slitter Technician Relationship Specialty Start Date End Date Jenifer Diane MD [address] [place] [phone] PCP - General Family Medicine 03/23/12 documented as of this encounter
[2024-08-20 18:12] LABS: TSH reflex Free T4 2.98 uIU/mL (0.32-4.0)
== END 2024-08-20 14:06 | disposition home or self-care (01) ==
LOC: HO.CHCLDS 14:05
PROVIDERS: Visit Provider Internal Medicine
DX: M62.838 Other muscle spasm (principal)
CPT/HCPCS: 36415; 84443